=== PATIENT | male | born 1985 | race Caucasian/White ===

== ENCOUNTER → 2025-02-02 10:21 | Outpatient (BNVA) | payer OTHER, SELFPAY | PROVIDERS: Visit Provider Nurse Practitioner Family | DX: L70.0 Acne vulgaris (principal); L98.8 Other specified disorders of the skin and subcutaneous tissue; L70.8 Other acne; D22.5 Melanocytic nevi of trunk; Q27.8 Other specified congenital malformations of peripheral vascular system; L82.1 Other seborrheic keratosis; L81.4 Other melanin hyperpigmentation; Z71.89 Other specified counseling | CPT/HCPCS: 99204 ==